=== PATIENT | female | born 1960 | race Two or more races ===

== ENCOUNTER → 2019-04-07 | Outpatient (CLI) | payer OTHER | END | disposition home or self-care (01) | LOC: LAB 09:11 | DX: Z11.3 Encounter for screening for infections with a predominantly sexual mode of transmission (principal) ==

== ENCOUNTER 2019-10-28 11:09 | Outpatient (CLI) | payer OTHER | END 2019-10-28 11:12 | disposition home or self-care (01) | LOC: LAB 11:09 | DX: N20.0 Calculus of kidney (principal) ==

== ENCOUNTER 2019-10-28 12:04 | Outpatient (CLI) | payer OTHER | END 2019-10-28 12:05 | disposition home or self-care (01) | LOC: TOM 12:04 | DX: R42 Dizziness and giddiness (principal) ==

== ENCOUNTER → 2019-11-13 07:23 | Outpatient (CLI) | payer OTHER | END | disposition home or self-care (01) | LOC: LAB 07:23 | DX: M62.89 Other specified disorders of muscle (principal); G62.89 Other specified polyneuropathies; R20.2 Paresthesia of skin; E03.8 Other specified hypothyroidism; E11.9 Type 2 diabetes mellitus without complications ==

== ENCOUNTER 2020-01-17 10:23 | Outpatient (CLI) | payer OTHER | END 2020-01-17 10:31 | disposition home or self-care (01) | LOC: MRI 10:23 | DX: M51.26 Other intervertebral disc displacement, lumbar region (principal); M51.36 Other intervertebral disc degeneration, lumbar region | CPT/HCPCS: 72148 ==

== ENCOUNTER → 2020-06-10 08:35 | Outpatient (CLI) | payer OTHER | END | disposition home or self-care (01) | LOC: LAB 08:35 | PROVIDERS: ATTEND Pediatrics Neonatal-Perinatal Medicine | DX: Z20.828 Contact with and (suspected) exposure to other viral communicable diseases (principal); Z11.59 Encounter for screening for other viral diseases ==

== ENCOUNTER 2020-07-08 09:16 | Outpatient (CLI) | payer OTHER | END 2020-07-08 11:16 | disposition home or self-care (01) | LOC: LAB 09:16 | DX: E03.8 Other specified hypothyroidism (principal); I10 Essential (primary) hypertension; E78.2 Mixed hyperlipidemia; E11.9 Type 2 diabetes mellitus without complications; I25.10 Atherosclerotic heart disease of native coronary artery without angina pectoris ==

== ENCOUNTER 2020-08-11 09:00 | Outpatient (CLI) | payer OTHER | END 2020-08-11 15:00 | disposition home or self-care (01) | LOC: PPH VACUNA 09:00 | DX: Z23 Encounter for immunization (principal) ==

== ENCOUNTER 2020-09-13 12:22 | Outpatient (CLI) | payer OTHER | END 2020-09-13 12:36 | disposition home or self-care (01) | LOC: MAMO-SONO 12:22 | DX: N60.92 Unspecified benign mammary dysplasia of left breast (principal) ==

== ENCOUNTER → 2020-12-23 07:40 | Outpatient (CLI) | payer OTHER | END | disposition home or self-care (01) | LOC: LAB 07:40 | PROVIDERS: ATTEND Internal Medicine Cardiovascular Disease | DX: E03.8 Other specified hypothyroidism (principal); I10 Essential (primary) hypertension; E78.2 Mixed hyperlipidemia; E11.9 Type 2 diabetes mellitus without complications; I25.10 Atherosclerotic heart disease of native coronary artery without angina pectoris ==

== ENCOUNTER 2021-07-04 10:03 | Outpatient (CLI) | payer OTHER | END 2021-07-04 10:59 | disposition home or self-care (01) | LOC: LAB 10:03 | PROVIDERS: ATTEND Pediatrics | DX: R06.02 Shortness of breath (principal); R05 Cough; Z03.818 Encounter for observation for suspected exposure to other biological agents ruled out ==

== ENCOUNTER 2021-08-01 07:12 | Outpatient (CLI) | payer OTHER | END 2021-08-01 07:13 | disposition home or self-care (01) | LOC: LAB 07:12 | PROVIDERS: ATTEND Internal Medicine Cardiovascular Disease | DX: I10 Essential (primary) hypertension (principal); E03.8 Other specified hypothyroidism; E78.2 Mixed hyperlipidemia; E11.9 Type 2 diabetes mellitus without complications; I25.10 Atherosclerotic heart disease of native coronary artery without angina pectoris ==

== ENCOUNTER 2021-08-21 10:52 | Outpatient (CLI) | payer OTHER | END 2021-08-21 11:52 | disposition home or self-care (01) | LOC: PPH VACUNA 10:52 | PROVIDERS: ATTEND Emergency Medicine Pediatric Emergency Medicine | DX: Z23 Encounter for immunization (principal) ==

== ENCOUNTER 2022-03-11 08:00 | Outpatient (CLI) | payer OTHER | END 2022-03-11 08:30 | disposition home or self-care (01) | LOC: PPH VACUNA 08:00 | PROVIDERS: ATTEND Emergency Medicine Pediatric Emergency Medicine | DX: Z23 Encounter for immunization (principal) ==

== ENCOUNTER 2022-03-22 07:35 | Outpatient (CLI) | payer OTHER | END 2022-03-23 06:55 | disposition home or self-care (01) | LOC: LAB 07:35 | DX: E03.9 Hypothyroidism, unspecified (principal); I10 Essential (primary) hypertension; E11.9 Type 2 diabetes mellitus without complications; E78.2 Mixed hyperlipidemia; I25.10 Atherosclerotic heart disease of native coronary artery without angina pectoris ==

== ENCOUNTER 2022-08-07 08:32 | Outpatient (CLI) | payer OTHER | END 2022-08-07 08:37 | disposition home or self-care (01) | LOC: PPH VACUNA 08:32 | PROVIDERS: ATTEND Emergency Medicine Pediatric Emergency Medicine | DX: Z23 Encounter for immunization (principal) ==

== ENCOUNTER 2022-08-07 09:11 | Outpatient (CLI) | payer OTHER | END 2022-08-07 09:19 | disposition home or self-care (01) | LOC: NUCLEAR 09:11 | PROVIDERS: ATTEND Internal Medicine | DX: M81.0 Age-related osteoporosis without current pathological fracture (principal) ==

== ENCOUNTER 2022-08-07 10:24 | Outpatient (CLI) | payer OTHER | END 2022-08-07 10:27 | disposition home or self-care (01) | LOC: RAD 10:24 | PROVIDERS: ATTEND Internal Medicine | DX: M15.0 Primary generalized (osteo)arthritis (principal) ==

== ENCOUNTER 2022-08-19 10:56 | Outpatient (CLI) | payer OTHER | END 2022-08-19 11:06 | disposition home or self-care (01) | LOC: PPH VACUNA 10:56 | PROVIDERS: ATTEND Emergency Medicine Pediatric Emergency Medicine | DX: Z23 Encounter for immunization (principal) ==

== ENCOUNTER 2022-09-10 10:09 | Outpatient (CLI) | payer OTHER | END 2022-09-10 10:23 | disposition home or self-care (01) | LOC: MAMO-SONO 10:09 | DX: N64.9 Disorder of breast, unspecified (principal) ==

== ENCOUNTER 2022-09-14 07:18 | Outpatient (CLI) | payer OTHER | END 2022-09-14 07:38 | disposition home or self-care (01) | LOC: LAB 07:18 | PROVIDERS: ATTEND Internal Medicine Cardiovascular Disease | DX: I10 Essential (primary) hypertension (principal); E11.9 Type 2 diabetes mellitus without complications; E78.2 Mixed hyperlipidemia; I25.10 Atherosclerotic heart disease of native coronary artery without angina pectoris ==

== ENCOUNTER 2022-11-01 07:56 | Outpatient (CLI) | payer OTHER | END 2022-11-01 07:59 | disposition home or self-care (01) | LOC: MRI 07:56 | PROVIDERS: ATTEND Internal Medicine | DX: M54.17 Radiculopathy, lumbosacral region (principal) | CPT/HCPCS: 72148 ==

== ENCOUNTER 2022-11-11 11:54 | Outpatient (CLI) | payer OTHER | END 2022-11-11 12:11 | disposition home or self-care (01) | LOC: MRI 11:54 | PROVIDERS: ATTEND Orthopaedic Surgery Orthopaedic Surgery of the Spine | DX: M50.00 Cervical disc disorder with myelopathy, unspecified cervical region (principal) | CPT/HCPCS: 72141 ==

== ENCOUNTER 2023-03-21 07:19 | Outpatient (CLI) | payer OTHER | END 2023-03-21 07:31 | disposition home or self-care (01) | LOC: LAB 07:19 | PROVIDERS: ATTEND Student in an Organized Health Care Education/Training Program | DX: E03.9 Hypothyroidism, unspecified (principal); I10 Essential (primary) hypertension; E78.2 Mixed hyperlipidemia; E11.9 Type 2 diabetes mellitus without complications; I25.10 Atherosclerotic heart disease of native coronary artery without angina pectoris ==

== ENCOUNTER 2023-07-01 10:39 | Outpatient (CLI) | payer OTHER | END 2023-07-01 10:41 | disposition home or self-care (01) | LOC: LAB 10:39 | DX: B01.9 Varicella without complication (principal) ==

== ENCOUNTER 2023-08-15 11:30 | Outpatient (CLI) | payer OTHER | END 2023-08-15 11:40 | disposition home or self-care (01) | LOC: PPH VACUNA 11:30 | PROVIDERS: ATTEND Emergency Medicine Pediatric Emergency Medicine | DX: Z23 Encounter for immunization (principal) | CPT/HCPCS: 90686; G0008 ==

== ENCOUNTER 2023-10-04 07:24 | Outpatient (CLI) | payer OTHER ==
[2023-10-04 08:33] LABS: URINE APPEARANCE Clear; URINE BILIRRUBIN Negative (NEGATIVE); URINE BLOOD Negative; URINE COLOR Yellow; URINE GLUCOSE Negative (NEGATIVE); URINE LEUKOCYTE Trace; URINE NITRATE Negative; URINE PROTEIN Negative (NEGATIVE); URINE UROBILINOGEN 0.2 E.U./dl
[2023-10-04 08:37] LABS: URINE BACTERIA 31.4 uL (0.0-1933); URINE EPITHELIAL CELLS 2.4 uL (0.0-38.8); URINE WBC 5.2 uL (0.0-23.2)
[2023-10-04 08:40] LABS: URINE RBC 1.5 uL (0.0-20.8)
[2023-10-04 08:58] LABS: HEMATOCRIT 41.8 % (36.0-45.00); HEMOGLOBIN 13.9 g/dL (12.0-15.00); MEAN CELL VOLUME 89.5 fL (80.00-100.00); MEAN CORPUSCULAR HEMOGLOBIN 29.7 pg (27.00-32.0); MEAN CORPUSCULAR HGB CONC 33.2 g/dl (32.0-36.0); PLATELET COUNT 306 K/uL (150-450); RED BLOOD COUNT 4.67 M/uL (4.00-6.00); RED CELL DISTRIBUTION WIDTH 13.8 % (11.5-14.5)
[2023-10-04 09:25] LABS: BILIRUBIN TOTAL 0.52 mg/dL (0.3-1.2); CALCIUM 9.5 mg/dL (8.5-10.1); CHOL HDL RATIO 2.2 (0-5.0); CREATININE SERUM 0.61 mg/dL (0.55-1.02); GFR 98.74; GLOBULINA 3.5 G/DL (2.4-3.5); POTASSIUM 4.46 mEq/L (3.5-5.1); TOTAL PROTEIN 7.5 gm/dL (6.4-8.2); TSH 0.92 uIU/mL (0.358-3.74)
== END 2023-10-04 07:36 | disposition home or self-care (01) ==
LOC: LAB 07:24
PROVIDERS: ATTEND Emergency Medicine Pediatric Emergency Medicine
DX: E78.2 Mixed hyperlipidemia (principal); E11.9 Type 2 diabetes mellitus without complications; E03.9 Hypothyroidism, unspecified; I25.10 Atherosclerotic heart disease of native coronary artery without angina pectoris

== ENCOUNTER 2023-10-27 07:28 | Outpatient (CLI) | payer OTHER | END 2023-10-27 07:29 | disposition home or self-care (01) | LOC: NUCLEAR 07:28 | DX: I20.9 Angina pectoris, unspecified (principal); I11.9 Hypertensive heart disease without heart failure; E78.2 Mixed hyperlipidemia ==

== ENCOUNTER 2024-11-04 07:18 | Outpatient (CLI) | payer OTHER ==
[2024-11-04 07:59] LABS: HEMATOCRIT 40.7 % (36.0-45.00); HEMOGLOBIN 14.1 g/dL (12.0-15.00); MEAN CELL VOLUME 90.3 fL (80.00-100.00); MEAN CORPUSCULAR HEMOGLOBIN 31.2 pg (27.00-32.0); MEAN CORPUSCULAR HGB CONC 34.5 g/dl (32.0-36.0); PLATELET COUNT 272 K/uL (150-450); RED BLOOD COUNT 4.51 M/uL (4.00-6.00); RED CELL DISTRIBUTION WIDTH 13.5 % (11.5-14.5)
[2024-11-04 08:09] LABS: PH,URINE 6.5 (5.0-8.0); URINE APPEARANCE Clear; URINE BILIRRUBIN Negative (NEGATIVE); URINE BLOOD Negative; URINE COLOR Yellow; URINE GLUCOSE Negative (NEGATIVE); URINE KETONE Negative (NEGATIVE); URINE LEUKOCYTE Negative; URINE NITRATE Negative; URINE PROTEIN Negative (NEGATIVE); URINE UROBILINOGEN 0.2 E.U./dl
[2024-11-04 08:13] LABS: URINE BACTERIA 14.6 uL (0.0-1933); URINE RBC 7.2 uL (0.0-20.8)
[2024-11-04 08:19] LABS: URINE EPITHELIAL CELLS 1.2 uL (0.0-38.8)
[2024-11-04 09:02] LABS: ALBUMIN 3.9 gm/dL (3.4-5.0); BILIRUBIN TOTAL 0.43 mg/dL (0.3-1.2); CALCIUM 9.2 mg/dL (8.5-10.1); CHOL HDL RATIO 1.9 (0-5.0); CREATININE SERUM 0.56 mg/dL (0.55-1.02); GFR 108.64; GLOBULINA 3.1 G/DL (2.4-3.5); POTASSIUM 4.25 mEq/L (3.5-5.1); TSH 0.663 uIU/mL (0.358-3.74)
== END 2024-11-04 07:25 | disposition home or self-care (01) ==
LOC: LAB 07:18
DX: I25.10 Atherosclerotic heart disease of native coronary artery without angina pectoris (principal); E03.9 Hypothyroidism, unspecified; E78.2 Mixed hyperlipidemia; E11.9 Type 2 diabetes mellitus without complications; I10 Essential (primary) hypertension

== ENCOUNTER 2025-03-23 07:38 | Outpatient (CLI) | payer OTHER | END 2025-03-23 07:41 | disposition home or self-care (01) | LOC: MAMO-SONO 07:38 | PROVIDERS: ATTEND Internal Medicine | DX: R92.8 Other abnormal and inconclusive findings on diagnostic imaging of breast (principal); N64.4 Mastodynia; Z12.31 Encounter for screening mammogram for malignant neoplasm of breast ==

== ENCOUNTER 2025-10-27 07:12 | Outpatient (CLI) | payer OTHER ==
[2025-10-27 07:52] LABS: BASO % 1.2 % (0.1-1.2); EOS # 0.10 (0.04-0.54); EOS % 1.7 % (0.7-7.0); LYMPH # 1.99 (1.18-3.74); LYMPH % 33.9 % (19.3-53.1); MEAN PLATELET VOLUME 8.60 fl (9.4-12.4); MONO # 0.62 (0.24-0.82); MONO % 10.6 % (4.7-12.5); NEUT # 3.08 (1.56-6.13); NEUT % 52.4 % (34.0-71.1); RED CELL DISTRIBUTION WIDTH 12.4 % (11.6-14.4)
[2025-10-27 08:01] LABS: URINE APPEARANCE Clear; URINE BACTERIA 133.8 uL (0.0-1933); URINE BILIRRUBIN Negative (NEGATIVE); URINE BLOOD Negative; URINE COLOR Yellow; URINE EPITHELIAL CELLS 9.1 uL (0.0-38.8); URINE GLUCOSE Negative (NEGATIVE); URINE KETONE Negative (NEGATIVE); URINE LEUKOCYTE Moderate; URINE NITRATE Negative; URINE PROTEIN Negative (NEGATIVE); URINE RBC 4.1 uL (0.0-20.8); URINE UROBILINOGEN 0.2 E.U./dl; URINE WBC 65.2 uL (0.0-23.2)
[2025-10-27 08:27] LABS: URINE CAST 0.00 uL (0.0-1.40)
[2025-10-27 08:41] LABS: ALT/SGPT 33 U/L (12-78); AST/SGOT 22 U/L (15-37); BILIRUBIN TOTAL 0.57 mg/dL (0.3-1.2); BUN CREA RATIO 19 (7.0-25.0); CHOL HDL RATIO 2.1 (0-5.0); CREATININE SERUM 0.57 mg/dL (0.55-1.02); GFR 106.12; GLOBULINA 3.1 G/DL (2.4-3.5); GLUCOSE FASTING 98 mg/dL (65-100); HDL 80 mg/dl (40-60); LDL 72 mg/dl (0-130); OSMOLALITY SERUM 284 MOSM/KG (275-295); TSH 0.907 uIU/mL (0.358-3.74); VLDL 14 (0-39)
== END 2025-10-27 07:18 | disposition home or self-care (01) ==
LOC: LAB 07:12
DX: E03.9 Hypothyroidism, unspecified (principal); I25.10 Atherosclerotic heart disease of native coronary artery without angina pectoris; E78.2 Mixed hyperlipidemia; E11.9 Type 2 diabetes mellitus without complications; I10 Essential (primary) hypertension